=== PATIENT | female | born 2000 | race Caucasian/White ===

== ENCOUNTER 2024-05-02 12:34 | Emergency (ER) | payer BC, SELFPAY ==
[2024-05-02 12:37] VITALS: BP 117/97; PULSE 68; RESP 16; TEMP 36.6; O2SAT 98; BMI 31.1
--- NOTE | 2024-05-02 12:39 | RAD_ITS ---
STUDY: X-RAY - RIGHT HAND REASON FOR EXAM: Female, 23 years old. Pain following injury. TECHNIQUE: 4 view(s) of the hand. COMPARISON: None. FINDINGS: Normal radiocarpal articulation. Normal distal radioulnar joint. Normal visualized carpal bones. Normal carpal articulations Normal carpometacarpal articulation of the thumb. Normal second through fifth carpometacarpal joints. Normal metacarpi. Normal metacarpophalangeal joint of the thumb. Normal interphalangeal joint of the thumb. Normal proximal and distal phalanges of the thumb. Normal metacarpophalangeal joints of the second through fifth fingers. Normal proximal and distal interphalangeal joints of the second through fifth fingers. Normal phalanges of the second through fifth fingers. Soft tissue swelling. RAD/Hand Min 3 Views IMPRESSION: Soft tissue swelling. No evidence of fracture or dislocation. Electronically Signed: Bryce Lassiter MD at 13:26 EDT ,
--- NOTE | 2024-05-02 14:10 | EX.ED.GENINJ ---
HPI History of Present Illness Chief Complaint: Head Injury PFSH PFSH Allergy/AdvReac Type Severity Reaction Status Date / Time gieslle Allergy Mild Itching Verified 05/02/24 12:35 Social History Smoking Status: Never smoker EXAM Physical Exam Const Vital Signs: 05/02/24 12:37 05/02/24 14:10 Temperature 97.8 F Temperature Source Temporal Pulse Rate 68 Respiratory Rate 16 Respiratory Effort Normal Non-Labored Respiratory Depth Normal Respiratory Pattern Normal Blood Pressure 117/97 H Blood Pressure Mean 103 Pulse Ox 98 Oxygen Delivery Method Room Air Room Air [facility] Narrative Medical decision making narrative: HISTORY OF PRESENT ILLNESS: 23-year-old female presents after mechanical fall last night. Notes she hit her head on the ground. She notes since then she had headaches and nausea. She also notes right finger pain. REVIEW OF SYSTEMS: Pertinent positives: Headache, nausea, finger pain Pertinent negatives: PHYSICAL EXAM: Nursing triage notes reviewed, Vital signs reviewed Primary Survey Airway: Intact Breathing: Bilateral breath sounds Circulation: Palpable bilateral femorals, Palpable bilateral radial, Palpable bilateral DP and Palpable bilateral PT Disability / Spine precautions GCS Score: Eye Openin Verbal Response: 5 Motor Response: 6 Secondary Survey Constitutional: Please see MDM Head: Atraumatic, Midface stable, NO jaw malocclusion, No Cephalohematoma, and No Lacerations noted Eye: Pupils equal round and reactive to light, Extraocular muscles intact and No periorbital ecchymosis or stepoff, no evidence of entrapment ENT: Oropharynx clear, no lacerations, no hemotympanum, no raccoon eyes or meadows sign Cervical spine / Neck: No cervical spine bony tenderness, crepitance, or stepoff deformity Trachea midline Lungs: Clear to auscultation, No asymmetric rise and No crepitus, no flail chest Cardiac: Regular rate and rhythm and No murmurs Abdomen: Soft, Nontender and No rebound Pelvis: Pelvis stable to compression : No evidence of genital injury Back: No midline bony tenderness to thoracic/lumbar/sacral spines Neuro: At baseline, intact strength and sensation in bilateral upper and lower extremities. 2+ patellar reflexes bilaterally. Extremities: NO gross Deformities Psych: Normal affect Nursing triage notes reviewed, Vital signs reviewed MEDICAL DECISION MAKING: Chief Complaint: Headache, nausea, finger pain External records reviewed: Reviewed prior medications, prior imaging. No recent imaging studies noted Factors affecting care: none Social determinants of health: none History obtained from others: none Consults: none MDM Narrative: Patient was hemodynamically stable, afebrile and nontoxic-appearing. Primary secondary trauma surveys concerning for the following differential I considered the following differential diagnosis: ICH, concussion, closed head injury, finger fracture dislocation X-rays were placed, ice was ordered vascular checks ordered per protocol orders secondary to adverse department conditions including high volume and high acuity. Patient is greater than 16, is not on blood thinners, no seizure after injury, GCS was stable 2 hours postinjury, no depressed skull fracture, no evidence of basilar skull fracture, no vomiting. Age less than 65, no retrograde amnesia and mechanism is not dangerous. CT scan of the head is not indicated at this time. There is no focal neurologic deficit present, no midline spinal tenderness, no altered level conscious, no intoxication, no distracting injury. Next criteria suggest no need for advanced imaging of the cervical spine. ALL IMAGES (IF OBTAINED) HAVE BEEN PERSONALLY REVIEWED AND INTERPRETED BY MYSELF. X-ray of the hand was read and reviewed personally by myself and showed no evidence of obvious fracture or dislocation. Radiologist agrees my interpretation. Tertiary trauma exam without new traumatic injury. Patient is concern for concussion hand contusion. Recommended Tylenol ibuprofen. I consider obtaining advanced imaging of the head and neck however patient had a negative [place] CT head rule as well as a negative Nexus criteria which makes advanced imaging more risky than a misdiagnosis in which case imaging not indicated at this time. Patient received a medical screening exam and within a reasonable level of confidence no emergent medical condition was identified. The patient and/or family, caregivers express understanding. The patient and/or family, caregivers agrees with the plan. Shared decision making: I will have a discussion with the patient and or visitors regarding risk/benefits of further testing or admission. They will be made aware of of the risk/benefits inherent in this decision they will be given the opportunity to voice understanding. Total critical care time today provided was at least 0 minutes. This excludes separately billable procedures. Critical care time (if documented) is secondary to the patient having high probability of clinically significant/life threatening deterioration in the patient's condition which required my urgent intervention. Impression: 1. Closed injury 2. Cough 3. Hand contusion Dispo: Discharge home This note was generated with [facility] [employer] software. It may contain incorrect words, spelling, and punctuation that were not noted in review of the chart prior to signing. Radiography Diagnostic Testing: Clinical Impression(s) from Imaging Studies Hand X-Ray 05/02/24 12:39 IMPRESSION: Soft tissue swelling. No evidence of fracture or dislocation. Electronically Signed: Bryce Lassiter MD at 13:26 EDT , Discharge Plan Triage Chief Complaint: Head Injury ED Provider: Fabio Mcclure Dx/Rx/DC Orders Instructions: ED Concussion, ED Hand Contusion Stand Alone Forms: ED Work / School Excuse Primary Care Provider: Grzegorz Agudelo,Out of Referrals: Grzegorz Doctor,Out of [Primary Care Provider] - Activity Restrictions/Additional Instructions: Thank you for trusting us with your care today! Your imaging of your hand was negative for acute fracture or dislocation Please take Tylenol (2 pills, 650 mg), ibuprofen (2 pills, 400 mg) every 6 hours as needed for pain and fever control. Please return to the emergency department if your symptoms change or worsen. Please follow with your primary care physician for further outpatient evaluation and management. Print Language: Yakut Disposition Disposition: Home, Self Care Discharge Date/Time: 05/02/24 15:09
== END 2024-05-02 15:09 | disposition home or self-care (01) ==
LOC: ED 15:02
PROVIDERS: Emergency Provider Emergency Medicine; Referring Provider Emergency Medicine; Visit Provider Emergency Medicine
DX: S09.90XA Unspecified injury of head, initial encounter (principal); R05.9 Cough, unspecified; S60.00XA Contusion of unspecified finger without damage to nail, initial encounter; W19.XXXA Unspecified fall, initial encounter
CPT/HCPCS: 73130; 99282